=== PATIENT | female | born 1970 | race Caucasian/White ===

== ENCOUNTER → 2021-10-21 | Day surgery (SDC) | payer OTHER ==
[~2021-10-21] VITALS: Ht 162.6 cm; Wt 68.0 kg
[~2021-10-21] MED LIST: COREG12.5 MG PO; HYDROCODON-ACE1 EAC6 PO; HYDROCODONE-AC1 EAC1 PO; HYDROXYZINE HCL25 MG PO; IBUPROFEN IB200 MG PO; LISINOPRIL20 MG PO; VENLAFAXINE HCL75 MG PO; ZOFRAN 4 MG TAB4 MG PO
[2021-10-21 07:24] LABS: BUN/CREATININE RATIO 28 (0-10)
== END | disposition home or self-care (01) ==
LOC: OR 06:16
PROVIDERS: Orthopaedic Surgery
DX: S52.552A Other extraarticular fracture of lower end of left radius, initial encounter for closed fracture (principal); G89.18 Other acute postprocedural pain; I10 Essential (primary) hypertension; K21.9 Gastro-esophageal reflux disease without esophagitis; F41.9 Anxiety disorder, unspecified; Z79.899 Other long term (current) drug therapy; Z88.0 Allergy status to penicillin
CPT/HCPCS: 73110; 76000; 80048; C1713; J0171; J0690; J1100; J1885; J2001; J2250; J2405; J2704; J2795; J3010